=== PATIENT | female | born 2005 | race Caucasian/White ===

== ENCOUNTER → 2023-06-05 | Outpatient (CLI) | payer OTHER, BC, SELFPAY ==
--- NOTE | 2023-06-05 | DI.US.S_ITS ---
PROCEDURE: US BREAST LT LIMITED COMPARISON: None. INDICATIONS: Unspecified lump in left breast, subareolar FINDINGS: IMPRESSION: Dictated by: Edilson Adrian M.D. on 06/05/2023 at 11:55 Approved by: Edilson Adrian M.D. on 06/05/2023 at 11:56
--- NOTE | 2023-06-05 11:40 | DI.US.S_ITS ---
Patient Name: ERIC RODRIGUEZ date: 2005 Sex: F Attending Physician: [place] Indications: Date: 06/05/2023 11:56 At the request of: DENISSE KERN Procedure: US breast LT limited LIMITED ULTRASOUND OF LEFT BREAST: 06/05/2023 CLINICAL: Patient returns today to evaluate a focal asymmetry in the left breast. No prior exams were available for comparison. Ultrasound of the left breast 12 o'clock region was performed. Manriquez scale images of the real-time examination were reviewed. No significant abnormalities were seen sonographically in the left breast. IMPRESSION: NEGATIVE There is no sonographic evidence of malignancy. There is no abnormality seen in the left breast to correspond with the palpable abnormality at 12 o'clock, however, clinical correlation and clinical followup are recommended. This exam was interpreted at Station ID: [id number]. Electronically Signed By: Edilson Adrian M.D. lc/:06/05/2023 11:56:23 letter sent: Clinical Evaluation Ultrasound BI-RADS: 1 Negative
== END ==
PROVIDERS: PCP Nurse Practitioner Family; Referring Provider Nurse Practitioner Family; Visit Provider Nurse Practitioner Family
DX: N63.42 Unspecified lump in left breast, subareolar (principal)
CPT/HCPCS: 76642

== ENCOUNTER → 2024-04-08 14:02 | Outpatient (CLI) | payer OTHER, BC, SELFPAY | PROVIDERS: Referring Provider Internal Medicine; Visit Provider Internal Medicine | DX: Z23 Encounter for immunization (principal) | CPT/HCPCS: 90471; 90656 ==